=== PATIENT | male | born 1990 | race Hispanic/Latino ===

== ENCOUNTER 2020-07-13 12:06 | Emergency (ER) | payer SELFPAY ==
[2020-07-13] MEDS ORDERED: Boostrix 0.5 ML (Tdap) VIAL ONE (12:13)
[2020-07-13] MEDS ORDERED: Cephalexin 250 MG CAP ONE (12:13)
== END 2020-07-13 13:05 | disposition home or self-care (01) ==
LOC: BURERS 12:06
DX: S61.411A Laceration without foreign body of right hand, initial encounter (principal); Z23 Encounter for immunization; W26.8XXA Contact with other sharp object(s), not elsewhere classified, initial encounter
CPT/HCPCS: 90471; 90715